=== PATIENT | female | born 1955 | race Caucasian/White ===

== ENCOUNTER 2023-07-31 09:11 | Day surgery (SDC) | payer MEDICARE, BC ==
[2023-07-31] MEDS ORDERED: Moxifloxacin 0.5% Ophth Soln 3 ML Bottle EYELF ONE (09:15)
[2023-07-31] MEDS ORDERED: Timolol Maleate 0.5% Ophth Soln 5 ML Bottle EYELF ONE (09:15)
[2023-07-31] MEDS ORDERED: Cataract Ophth Solution EYELF ONE (09:15)
[2023-07-31] MEDS ORDERED: Sodium Chloride 0.9% 10 ML Syringe FLUSH PRN (09:15)
[2023-07-31] MEDS ORDERED: Acetaminophen 325 MG Tab PO PRN (09:15)
[2023-07-31] MEDS ORDERED: Povidone-Iodine 5% Sterile Ophth Soln 30 ML Bottle EYELF ONE ×2 (09:15→10:02)
[2023-07-31] MEDS ORDERED: Tropicamide 1% Ophth Soln 15 ML Bottle EYELF ONE (09:15)
[2023-07-31] MEDS ORDERED: Acetaminophen/Codeine 300-30 MG Tab PO PRN (09:15)
[2023-07-31] MEDS ORDERED: Ondansetron 4 MG/2 ML SDV IVPUSH PRN (09:15)
[2023-07-31] MEDS ORDERED: Phenylephrine 10% Ophth Soln 5 ML Bot EYELF PRN (09:15)
[2023-07-31] MEDS ORDERED: Proparacaine 0.5% Ophth Soln 15 ML Bottle EYELF ONE ×2 (09:15→10:01)
[2023-07-31] MEDS ORDERED: Apraclonidine 0.5% Ophth Soln 5 ML Bot EYELF ONE (10:02)
[2023-07-31] MEDS ORDERED: Dexamethasone/Tobramycin 0.1-0.3% Ophth Oint 3.5 GM Tube EYELF ONE (10:02)
[2023-07-31] MEDS ORDERED: Lidocaine 1% 30 ML SDV INFILT ONE (10:03)
[2023-07-31] MEDS ORDERED: Vancomycin 500 MG SDV EYELF ONE (10:03)
== END 2023-07-31 10:47 | disposition home or self-care (01) ==
LOC: DL.SDS 09:11
PROVIDERS: ATTEND Ophthalmology
DX: H25.812 Combined forms of age-related cataract, left eye (principal); F32.A Depression, unspecified; F17.210 Nicotine dependence, cigarettes, uncomplicated; Z79.899 Other long term (current) drug therapy; Z88.8 Allergy status to other drugs, medicaments and biological substances
CPT/HCPCS: A9270-GY; J3370; J3490; V2788-GY

== ENCOUNTER 2023-08-14 09:05 | Day surgery (SDC) | payer MEDICARE, BC ==
[2023-08-14] MEDS ORDERED: Acetaminophen 325 MG Tab PO PRN (09:31)
[2023-08-14] MEDS ORDERED: Ondansetron 4 MG/2 ML SDV IVPUSH PRN (09:31)
[2023-08-14] MEDS ORDERED: Acetaminophen/Codeine 300-30 MG Tab PO PRN (09:31)
[2023-08-14] MEDS: Proparacaine 0.5% Ophth Soln 15 ML Bottle EYERT ONE ×2 (09:34→10:25)
[2023-08-14] MEDS: Moxifloxacin 0.5% Ophth Soln 3 ML Bottle EYERT ONE (09:35)
[2023-08-14] MEDS: Povidone-Iodine 5% Sterile Ophth Soln 30 ML Bottle EYERT ONE ×2 (09:36→10:26)
[2023-08-14] MEDS: Phenylephrine 10% Ophth Soln 5 ML Bot EYERT ONE (09:37)
[2023-08-14] MEDS: Tropicamide 1% Ophth Soln 15 ML Bottle EYERT ONE (09:37)
[2023-08-14] MEDS: Timolol Maleate 0.5% Ophth Soln 5 ML Bottle EYERT ONE (09:38)
[2023-08-14] MEDS: Cataract Ophth Solution EYERT ONE (09:39)
[2023-08-14] MEDS: Sodium Chloride 0.9% 10 ML Syringe FLUSH PRN (09:40)
[2023-08-14] MEDS: Diclofenac Sodium 0.1% Ophth Soln 5 ML Bottle EYERT ONE (10:27)
[2023-08-14] MEDS: Apraclonidine 0.5% Ophth Soln 5 ML Bot EYERT ONE (10:27)
[2023-08-14] MEDS: Tobramycin 0.3% Ophth Oint 3.5 GM Tube EYERT ONE (10:28)
[2023-08-14] MEDS: Lidocaine 1% 30 ML SDV INJECT ONE (10:28)
[2023-08-14] MEDS: Vancomycin 500 MG SDV EYERT ONE (10:29)
== END 2023-08-14 11:00 | disposition home or self-care (01) ==
LOC: DL.SDS 09:05
PROVIDERS: ATTEND Ophthalmology
DX: H25.811 Combined forms of age-related cataract, right eye (principal); F32.A Depression, unspecified; F17.210 Nicotine dependence, cigarettes, uncomplicated; Z98.890 Other specified postprocedural states; Z79.899 Other long term (current) drug therapy; Z88.8 Allergy status to other drugs, medicaments and biological substances
CPT/HCPCS: 66984; A9270; J3370; J3490